=== PATIENT | male | born 1960 | race African-American/Black ===

== ENCOUNTER 2024-04-19 17:27 | Emergency (ER) | payer OTHER | END 2024-04-19 17:49 | disposition home or self-care (01) | LOC: BURERS 17:27 | DX: Z76.0 Encounter for issue of repeat prescription (principal); E11.9 Type 2 diabetes mellitus without complications | CPT/HCPCS: 99281 ==

== ENCOUNTER 2024-05-18 11:04 | Emergency (ER) | payer OTHER | END 2024-05-18 12:46 | disposition home or self-care (01) | LOC: BURERS 11:04 → EEVIPCON 11:04 → BURERS 12:46 | DX: Z76.0 Encounter for issue of repeat prescription (principal); E11.9 Type 2 diabetes mellitus without complications; I10 Essential (primary) hypertension; B20 Human immunodeficiency virus [HIV] disease; Z79.899 Other long term (current) drug therapy | CPT/HCPCS: 99281 ==

== ENCOUNTER 2024-06-09 06:36 | Emergency (ER) | payer OTHER ==
[2024-06-09] MEDS ORDERED: HYDROcodone/Acetaminophen 10/325 mg Tablet ONE (07:20)
== END 2024-06-09 07:25 ==
LOC: BURERS 06:36 → EEVIPCON 06:36 → BURERS 07:25
DX: G89.29 Other chronic pain (principal); E11.9 Type 2 diabetes mellitus without complications; I10 Essential (primary) hypertension; B20 Human immunodeficiency virus [HIV] disease
CPT/HCPCS: 99283

== ENCOUNTER 2024-06-16 09:14 | Emergency (ER) | payer OTHER | END 2024-06-16 09:49 | disposition home or self-care (01) | LOC: BURERS 09:14 | DX: Z76.0 Encounter for issue of repeat prescription (principal); E11.9 Type 2 diabetes mellitus without complications; I10 Essential (primary) hypertension; Z55.6 Problems related to health literacy | CPT/HCPCS: 99281 ==